=== PATIENT | male | born 1955 | race African-American/Black ===

== ENCOUNTER 2016-08-04 07:28 | Day surgery (SDC) | payer MEDICARE, MEDICAID ==
[~2016-08-04] VITALS: Ht 182.9 cm; Wt 61.2 kg
[~2016-08-04 07:28] MED LIST: AMLODIPINE5 MG PO; CEPHALEXIN500 MG PO; CREON1 CAP PO; CREON6000 UNIT OR; DOXYCYCL HYC100 MG PO; FLUZONE SPLT1 M1 IM; GAS-X80 MG OR; KEFLEX500 MG PO; MAALOX/BEN PO; MELOXICAM15 MG PO; MYLICON OR; NAPROSYN500 MG PO; NO MEDS; OMEPRAZOLE20 M1 PO; PRILOSEC OTC20 MG OR; PROBIOTIC OR; PROBIOTICS OR; PROCTOFOAM HC10 GM RE; PROTONIX40 MG OR; SULINDAC200 MG OR; SULINDAC200 MG PO; TESSALON PER100 MG PO; TRAMADOL HCL100 MG PO; TRAMADOL HCL50 MG PO; ULTRAM50 M1 PO; ULTRAM50 MG OR; ULTRAM50 MG PO; ZITHROMAX250 MG PO
[2016-08-04 09:39] VITALS: BP 136/94
== END 2016-08-04 09:55 | disposition home or self-care (01) ==
LOC: ENDO 07:28
PROVIDERS: ATTEND Surgery
PROC: 0DJD8ZZ Inspection of Lower Intestinal Tract, Via Natural or Artificial Opening Endoscopic (ICD-10-PCS; principal; 2016-08-04)
DX: Z12.11 Encounter for screening for malignant neoplasm of colon (principal); K64.4 Residual hemorrhoidal skin tags; K64.8 Other hemorrhoids; I10 Essential (primary) hypertension; F17.210 Nicotine dependence, cigarettes, uncomplicated

== ENCOUNTER 2016-12-31 17:10 | Emergency (ER) | payer MEDICARE, MEDICAID ==
[~2016-12-31] VITALS: Ht 182.9 cm; Wt 60.0 kg
[2016-12-31 18:37] LABS: INFLUENZA A NONE DETECTED (NONE DETECT); INFLUENZA B NONE DETECTED (NONE DETECT)
[2016-12-31 18:41] LABS: URINE BLOOD DIPSTICK NEGATIVE (NEGATIVE); URINE CLARITY CLEAR; URINE COLOR YELLOW; URINE GLUCOSE - DIPSTICK 100 mg/dL (NEGATIVE); URINE KETONE TRACE mg/dL (NEGATIVE); URINE LEUK ESTERASE NEGATIVE (NEGATIVE); URINE NITRITE - DIPSTICK NEGATIVE (Negative); URINE PROTEIN - DIPSTICK TRACE mg/dL (NEG-TRACE); URINE SPECIFIC GRAVITY 1.025; URINE UROBILINOGEN - DIPSTICK 0.2 E.U./dL (0.2)
[2016-12-31 18:45] LABS: URINE BILIRUBIN - DIPSTICK MODERATE (NEGATIVE)
[2016-12-31] MEDS ORDERED: NAPROSYN500 MG PO (19:01)
[2016-12-31 19:10] VITALS: BP 136/86
== END 2016-12-31 19:10 | disposition home or self-care (01) ==
LOC: ED 17:10
PROVIDERS: Emergency Medicine
DX: B34.9 Viral infection, unspecified (principal); I10 Essential (primary) hypertension; B19.20 Unspecified viral hepatitis C without hepatic coma; F17.210 Nicotine dependence, cigarettes, uncomplicated

== ENCOUNTER 2017-05-25 08:05 | Day surgery (SDC) | payer MEDICARE, MEDICAID ==
[~2017-05-25] VITALS: Ht 182.9 cm; Wt 56.7 kg
[~2017-05-25 08:05] MED LIST changes: +[UNRECOGNIZED DRUG - OTHER] PO
[2017-05-25 10:52] VITALS: BP 135/88
== END 2017-05-25 11:02 | disposition home or self-care (01) ==
LOC: ENDO 08:05 → ORM 11:00 → ENDO 11:02
PROVIDERS: ATTEND Surgery
PROC: 0DB58ZX Excision of Esophagus, Via Natural or Artificial Opening Endoscopic, Diagnostic (ICD-10-PCS; principal; 2017-05-25)
PROC: 0DJD8ZZ Inspection of Lower Intestinal Tract, Via Natural or Artificial Opening Endoscopic (ICD-10-PCS; 2017-05-25)
DX: R63.4 Abnormal weight loss (principal); K20.9 Esophagitis, unspecified; K64.4 Residual hemorrhoidal skin tags; I10 Essential (primary) hypertension; Z98.890 Other specified postprocedural states; Z87.891 Personal history of nicotine dependence

== ENCOUNTER 2018-03-06 09:17 | Inpatient (IN) | payer MEDICARE, MEDICAID ==
[~2018-03-06] VITALS: Ht 182.9 cm; Wt 54.0 kg
[~2018-03-06 09:17] MED LIST changes: +PREDNISONE10 MG PO
[2018-03-06] MEDS ORDERED: LOSARTAN POT50 MG PO (09:51)
[2018-03-06] MEDS ORDERED: BEVESPI AEROSPH1 AER PO (09:52)
[2018-03-06 10:01] LABS: HEMATOCRIT 37.9 % (39.0-50.0); HEMOGLOBIN 12.7 g/dl (14.0-18.0); IMMATURE GRANULOCYTES 0.6 % (0.0-5.0); MEAN CORPUSCULAR HGB CONC 33.5 g/L CALC (32.0-36.0); NEUT# 12.68 thou/uL (1.82-7.42); RED BLOOD COUNT 4.23 mill/uL (4.70-6.10); RED CELL DISTRI WIDTH 14.6 % (11.5-15.5)
[2018-03-06 10:02] LABS: MEAN CELL VOLUME 89.6 fL CALC (80.0-100.0)
[2018-03-06 10:16] LABS: ALKALINE PHOSPHATASE 112 u/l (38-126); ANION GAP 10 (6-22 (CALC)); BILIRUBIN, TOTAL 0.2 mg/dL (0.0-1.4); BUN 5 mg/dL (8-23); BUN/CREATININE RATIO 4 (12-20 (CALC)); CARBON DIOXIDE 22 mmol/l (22-30); CHLORIDE 113 mmol/l (95-108); CREATININE 1.4 mg/dL (0.7-1.3); GFR 52 ML/MIN (>=60 (CALC)); GFR FOR AFR.AMER. > 60 ML/MIN (>=60 (CALC)); SGOT/AST 15 u/l (19-48); SODIUM 142 mmol/l (137-146); TOTAL PROTEIN 6.5 g/dL (6.3-8.2)
[2018-03-06 10:19] LABS: POTASSIUM 2.9 mmol/l (3.5-5.1)
[2018-03-06 13:56] VITALS: BP 166/89
[2018-03-06 15:33] VITALS: BP 160/88
[2018-03-06 19:19] VITALS: BP 157/89
[2018-03-07 04:11] VITALS: BP 175/96
[2018-03-07 05:12] LABS: HEMATOCRIT 33.7 % (39.0-50.0); HEMOGLOBIN 11.4 g/dl (14.0-18.0); MEAN CELL VOLUME 87.5 fL CALC (80.0-100.0); MEAN CORPUSCULAR HGB 29.6 pG CALC (26.0-32.0); MEAN CORPUSCULAR HGB CONC 33.8 g/L CALC (32.0-36.0); RED BLOOD COUNT 3.85 mill/uL (4.70-6.10); RED CELL DISTRI WIDTH 14.4 % (11.5-15.5)
[2018-03-07 05:35] LABS: CHOLESTEROL HDL RATIO 1.2 (<4.4 (CALC)); MAGNESIUM 1.6 mg/dL (1.6-2.3)
[2018-03-07 05:44] LABS: ANION GAP 11 (6-22 (CALC)); BUN 5 mg/dL (8-23); BUN/CREATININE RATIO 4 (12-20 (CALC)); CARBON DIOXIDE 20 mmol/l (22-30); CHLORIDE 112 mmol/l (95-108); CREATININE 1.2 mg/dL (0.7-1.3); GFR > 60 ML/MIN (>=60 (CALC)); GFR FOR AFR.AMER. > 60 ML/MIN (>=60 (CALC)); SODIUM 139 mmol/l (137-146)
[2018-03-07 05:45] LABS: POTASSIUM 3.8 mmol/l (3.5-5.1)
[2018-03-07 07:21] VITALS: BP 171/92
[2018-03-07 12:37] VITALS: BP 151/85
[2018-03-07 15:50] VITALS: BP 147/83
[2018-03-07 19:43] VITALS: BP 166/85
[2018-03-08] VITALS (9 sets, daily range): BP systolic 120–176; BP diastolic 76–95
[2018-03-08 05:21] LABS: HEMATOCRIT 32.7 % (39.0-50.0); MEAN CELL VOLUME 88.1 fL CALC (80.0-100.0); MEAN CORPUSCULAR HGB 29.6 pG CALC (26.0-32.0); MEAN CORPUSCULAR HGB CONC 33.6 g/L CALC (32.0-36.0); RED BLOOD COUNT 3.71 mill/uL (4.70-6.10); RED CELL DISTRI WIDTH 14.6 % (11.5-15.5)
[2018-03-08 05:32] LABS: ANION GAP 11 (6-22 (CALC)); BUN 4 mg/dL (8-23); BUN/CREATININE RATIO 4 (12-20 (CALC)); CARBON DIOXIDE 21 mmol/l (22-30); CHLORIDE 111 mmol/l (95-108); CREATININE 1.2 mg/dL (0.7-1.3); GFR > 60 ML/MIN (>=60 (CALC)); GFR FOR AFR.AMER. > 60 ML/MIN (>=60 (CALC)); POTASSIUM 3.8 mmol/l (3.5-5.1); SODIUM 139 mmol/l (137-146)
[2018-03-09] VITALS (8 sets, daily range): BP systolic 141–180; BP diastolic 74–96
[2018-03-09 05:39] LABS: HEMATOCRIT 34.9 % (39.0-50.0); HEMOGLOBIN 11.6 g/dl (14.0-18.0); IMMATURE GRANULOCYTES 2.1 % (0.0-5.0); MEAN CELL VOLUME 89.7 fL CALC (80.0-100.0); MEAN CORPUSCULAR HGB 29.8 pG CALC (26.0-32.0); MEAN CORPUSCULAR HGB CONC 33.2 g/L CALC (32.0-36.0); NEUT# 12.12 thou/uL (1.82-7.42); RED BLOOD COUNT 3.89 mill/uL (4.70-6.10); RED CELL DISTRI WIDTH 14.8 % (11.5-15.5)
[2018-03-09 05:52] LABS: ALBUMIN 2.7 g/dL (3.2-5.0); CREATININE 1.6 mg/dL (0.7-1.3); MAGNESIUM 1.7 mg/dL (1.6-2.3); POTASSIUM 4.1 mmol/l (3.5-5.1); TOTAL PROTEIN 5.7 g/dL (6.3-8.2)
[2018-03-10 04:23] VITALS: BP 156/89
[2018-03-10 05:29] LABS: HEMATOCRIT 32.1 % (39.0-50.0); HEMOGLOBIN 10.7 g/dl (14.0-18.0); IMMATURE GRANULOCYTES 4.7 % (0.0-5.0); MEAN CELL VOLUME 89.9 fL CALC (80.0-100.0); MEAN CORPUSCULAR HGB CONC 33.3 g/L CALC (32.0-36.0); NEUT# 11.84 thou/uL (1.82-7.42); RED BLOOD COUNT 3.57 mill/uL (4.70-6.10); RED CELL DISTRI WIDTH 14.8 % (11.5-15.5)
[2018-03-10 05:59] LABS: ALBUMIN 2.5 g/dL (3.2-5.0); ALKALINE PHOSPHATASE 134 u/l (38-126); ANION GAP 11 (6-22 (CALC)); BILIRUBIN, TOTAL 0.1 mg/dL (0.0-1.4); BUN 13 mg/dL (8-23); BUN/CREATININE RATIO 9 (12-20 (CALC)); CARBON DIOXIDE 23 mmol/l (22-30); CHLORIDE 107 mmol/l (95-108); CREATININE 1.4 mg/dL (0.7-1.3); GFR 52 ML/MIN (>=60 (CALC)); GFR FOR AFR.AMER. > 60 ML/MIN (>=60 (CALC)); MAGNESIUM 1.8 mg/dL (1.6-2.3); POTASSIUM 4.3 mmol/l (3.5-5.1); SODIUM 137 mmol/l (137-146); TOTAL PROTEIN 5.3 g/dL (6.3-8.2)
[2018-03-10 06:01] LABS: SGOT/AST 74 u/l (19-48)
[2018-03-10 09:27] VITALS: BP 152/82
[2018-03-10 09:28] VITALS: BP 152/82
[2018-03-10] MEDS ORDERED: CARVEDILOL6.25 MG PO (14:18)
[2018-03-10] MEDS ORDERED: DOXYCYC MONO100 M2 PO (14:18)
[2018-03-10] MEDS ORDERED: AMLODIPINE BESYL5 MG PO (14:18)
[2018-03-10] MEDS ORDERED: MEDDOSEPAK PO (14:29)
== END 2018-03-10 15:10 | disposition home or self-care (01) | DRG 190 ==
LOC: ED 09:17 → ED-I 11:20 → ED 12:12 → MS2 12:13
PROVIDERS: Emergency Medicine; Internal Medicine Nephrology; ADMIT Internal Medicine; ATTEND Internal Medicine
PROC: 3E02340 Introduction of Influenza Vaccine into Muscle, Percutaneous Approach (ICD-10-PCS; principal; 2018-03-08)
PROC: 3E0234Z Introduction of Serum, Toxoid and Vaccine into Muscle, Percutaneous Approach (ICD-10-PCS; 2018-03-08)
DX: J44.1 Chronic obstructive pulmonary disease with (acute) exacerbation (principal); J18.9 Pneumonia, unspecified organism; N17.9 Acute kidney failure, unspecified; Z68.1 Body mass index [BMI] 19.9 or less, adult; E46 Unspecified protein-calorie malnutrition; J44.0 Chronic obstructive pulmonary disease with (acute) lower respiratory infection; I12.9 Hypertensive chronic kidney disease with stage 1 through stage 4 chronic kidney disease, or unspecified chronic kidney disease; N18.3 Chronic kidney disease, stage 3 (moderate); E87.6 Hypokalemia; F17.210 Nicotine dependence, cigarettes, uncomplicated; B19.20 Unspecified viral hepatitis C without hepatic coma; M19.90 Unspecified osteoarthritis, unspecified site; E86.0 Dehydration; K70.0 Alcoholic fatty liver; F10.20 Alcohol dependence, uncomplicated; Z23 Encounter for immunization

== ENCOUNTER 2018-04-14 01:15 | Observation (INO) | payer MEDICARE, MEDICAID ==
[~2018-04-14] VITALS: Ht 182.9 cm; Wt 55.1 kg
[~2018-04-14 01:15] MED LIST changes: +AMLODIPINE BESYL5 MG PO; +BEVESPI AEROSPH1 AER PO; +CARVEDILOL6.25 MG PO; +DOXYCYC MONO100 M2 PO; +LOSARTAN POT50 MG PO; +MEDDOSEPAK PO
[2018-04-14 01:42] LABS: HEMATOCRIT 37.9 % (39.0-50.0); HEMOGLOBIN 12.4 g/dl (14.0-18.0); IMMATURE GRANULOCYTES 0.4 % (0.0-5.0); MEAN CELL VOLUME 91.8 fL CALC (80.0-100.0); MEAN CORPUSCULAR HGB CONC 32.7 g/L CALC (32.0-36.0); NEUT# 8.6 thou/uL (1.82-7.42); RED BLOOD COUNT 4.13 mill/uL (4.70-6.10); RED CELL DISTRI WIDTH 15.1 % (11.5-15.5)
[2018-04-14 01:53] LABS: ALKALINE PHOSPHATASE 173 u/l (38-126); ANION GAP 13 (6-22 (CALC)); BILIRUBIN, TOTAL 0.4 mg/dL (0.0-1.4); BUN 9 mg/dL (8-23); BUN/CREATININE RATIO 6 (12-20 (CALC)); CARBON DIOXIDE 24 mmol/l (22-30); CHLORIDE 105 mmol/l (95-108); CREATININE 1.5 mg/dL (0.7-1.3); GFR 48 ML/MIN (>=60 (CALC)); GFR FOR AFR.AMER. 58 ML/MIN (>=60 (CALC)); LIPASE 17 u/l (23-300); POTASSIUM 4.2 mmol/l (3.5-5.1); SGOT/AST 45 u/l (19-48); SODIUM 137 mmol/l (137-146)
[2018-04-14 01:55] LABS: TOTAL PROTEIN 7.3 g/dL (6.3-8.2)
[2018-04-14 02:05] LABS: ACT PARTIAL THROMBO TIME 28.2 SECONDS (20.0-32.5); PROTHROMBIN TIME 10.8 SECONDS (9.0-12.5)
[2018-04-14 02:06] LABS: MYOGLOBIN 54 ng/mL (0 - 121)
[2018-04-14 03:13] LABS: URINE BILIRUBIN - DIPSTICK NEGATIVE (NEGATIVE); URINE BLOOD DIPSTICK NEGATIVE (NEGATIVE); URINE COLOR YELLOW; URINE GLUCOSE - DIPSTICK NEGATIVE (NEGATIVE); URINE KETONE NEGATIVE (NEGATIVE); URINE LEUK ESTERASE NEGATIVE (NEGATIVE); URINE NITRITE - DIPSTICK NEGATIVE (Negative); URINE PH 5.5 (4.5-8.0); URINE PROTEIN - DIPSTICK NEGATIVE (NEG-TRACE); URINE UROBILINOGEN - DIPSTICK 0.2 E.U./dL (0.2)
[2018-04-14 03:20] LABS: BARBITURATES NEGATIVE (NEGATIVE); COCAINE POSITIVE (NEGATIVE); METHADONE NEGATIVE (NEGATIVE); OXCYCODONE NEGATIVE (NEGATIVE); TETRAHYDROCANNABIONOL NEGATIVE (NEGATIVE); TRICYLIC ANTIDEPRESSANTS NEGATIVE (NEGATIVE)
[2018-04-14 04:30] VITALS: BP 175/101
[2018-04-14 08:08] VITALS: BP 160/90
[2018-04-14 11:51] VITALS: BP 173/103
[2018-04-14 15:30] VITALS: BP 157/95
[2018-04-14 19:55] VITALS: BP 144/84
[2018-04-14 23:40] VITALS: BP 139/86
[2018-04-15 04:30] VITALS: BP 154/89
[2018-04-15 05:09] LABS: HEMATOCRIT 36.1 % (39.0-50.0); HEMOGLOBIN 11.8 g/dl (14.0-18.0); IMMATURE GRANULOCYTES 0.6 % (0.0-5.0); MEAN CELL VOLUME 91.2 fL CALC (80.0-100.0); MEAN CORPUSCULAR HGB 29.8 pG CALC (26.0-32.0); MEAN CORPUSCULAR HGB CONC 32.7 g/L CALC (32.0-36.0); NEUT# 6.32 thou/uL (1.82-7.42); RED BLOOD COUNT 3.96 mill/uL (4.70-6.10); RED CELL DISTRI WIDTH 14.8 % (11.5-15.5)
[2018-04-15 05:28] LABS: ALKALINE PHOSPHATASE 135 u/l (38-126); AMYLASE 101 u/l (30-110); ANION GAP 12 (6-22 (CALC)); BILIRUBIN, TOTAL 0.2 mg/dL (0.0-1.4); BUN 10 mg/dL (8-23); BUN/CREATININE RATIO 8 (12-20 (CALC)); CARBON DIOXIDE 26 mmol/l (22-30); CHLORIDE 102 mmol/l (95-108); CREATININE 1.3 mg/dL (0.7-1.3); GFR 56 ML/MIN (>=60 (CALC)); GFR FOR AFR.AMER. > 60 ML/MIN (>=60 (CALC)); LIPASE 15 u/l (23-300); POTASSIUM 4.4 mmol/l (3.5-5.1); SGOT/AST 21 u/l (19-48); SODIUM 134 mmol/l (137-146)
[2018-04-15 05:30] LABS: CHOLESTEROL HDL RATIO 1.4 (<4.4 (CALC))
[2018-04-15 05:39] LABS: TOTAL PROTEIN 5.7 g/dL (6.3-8.2)
[2018-04-15 08:03] VITALS: BP 147/80
[2018-04-15 11:34] VITALS: BP 135/80
[2018-04-15] MEDS ORDERED: LOSARTAN POT50 MG PO (12:15)
== END 2018-04-15 13:30 | disposition home or self-care (01) ==
LOC: ED 01:15 → ED-I 03:32 → ED 03:49 → MS2 03:50
PROVIDERS: Emergency Medicine; ADMIT Internal Medicine Nephrology; ATTEND Internal Medicine Nephrology
DX: I16.0 Hypertensive urgency (principal); I10 Essential (primary) hypertension; F14.188 Cocaine abuse with other cocaine-induced disorder; F14.10 Cocaine abuse, uncomplicated; J44.9 Chronic obstructive pulmonary disease, unspecified; F17.210 Nicotine dependence, cigarettes, uncomplicated; R63.6 Underweight; B19.20 Unspecified viral hepatitis C without hepatic coma; M19.90 Unspecified osteoarthritis, unspecified site; F10.10 Alcohol abuse, uncomplicated; T46.5X6A Underdosing of other antihypertensive drugs, initial encounter; Z68.1 Body mass index [BMI] 19.9 or less, adult; Z87.11 Personal history of peptic ulcer disease; Z91.128 Patient's intentional underdosing of medication regimen for other reason; R07.9 Chest pain, unspecified
CPT/HCPCS: J2060

== ENCOUNTER 2018-04-23 23:55 | Emergency (ER) | payer MEDICARE, MEDICAID ==
[~2018-04-23] VITALS: Ht 182.9 cm; Wt 58.1 kg
[2018-04-24] MEDS ORDERED: VOLTAREN - GENE75 MG PO (00:11)
[2018-04-24] MEDS ORDERED: DOXYCYCL HYC100 MG PO (00:11)
[2018-04-24 01:37] VITALS: BP 153/94
== END 2018-04-24 01:44 | disposition home or self-care (01) ==
LOC: ED 23:55
DX: L03.114 Cellulitis of left upper limb (principal); S51.812A Laceration without foreign body of left forearm, initial encounter; I10 Essential (primary) hypertension; M19.90 Unspecified osteoarthritis, unspecified site; J44.9 Chronic obstructive pulmonary disease, unspecified; F17.200 Nicotine dependence, unspecified, uncomplicated; B19.20 Unspecified viral hepatitis C without hepatic coma; X58.XXXA Exposure to other specified factors, initial encounter; Z90.49 Acquired absence of other specified parts of digestive tract; Z87.11 Personal history of peptic ulcer disease